=== PATIENT | female | born 1955 | race Caucasian/White ===

== ENCOUNTER → 2017-08-25 13:33 | Outpatient (CLI) | payer MEDICARE ==
[2010-02-27 13:04] VITALS: BMI 22.6
== END | disposition home or self-care (01) ==
LOC: D.MAMMO 07-23 10:45
DX: Z12.31 Encounter for screening mammogram for malignant neoplasm of breast (principal)

== ENCOUNTER → 2017-09-30 19:21 | Outpatient (CLI) | payer MEDICARE ==
[2010-02-27 13:04] VITALS: BMI 22.6
== END | disposition home or self-care (01) ==
LOC: D.MAMMO 11:30
DX: R92.8 Other abnormal and inconclusive findings on diagnostic imaging of breast (principal); N63.21 Unspecified lump in the left breast, upper outer quadrant

== ENCOUNTER → 2018-04-06 22:46 | Outpatient (CLI) | payer MEDICARE ==
[2010-02-27 13:04] VITALS: BMI 22.6
== END | disposition home or self-care (01) ==
LOC: D.MAMMO 09:00
DX: R92.8 Other abnormal and inconclusive findings on diagnostic imaging of breast (principal)

== ENCOUNTER → 2018-10-08 16:48 | Outpatient (CLI) | payer MEDICARE ==
[2010-02-27 13:04] VITALS: BMI 22.6
== END | disposition home or self-care (01) ==
LOC: D.MAMMO 09:30
PROVIDERS: ATTEND Internal Medicine
DX: R92.8 Other abnormal and inconclusive findings on diagnostic imaging of breast (principal)

== ENCOUNTER → 2019-03-31 06:44 | Outpatient (CLI) | payer MEDICARE ==
[2010-02-27 13:04] VITALS: BMI 22.6
== END | disposition home or self-care (01) ==
LOC: D.US 06:44
PROVIDERS: ATTEND Internal Medicine
DX: R10.9 Unspecified abdominal pain (principal)

== ENCOUNTER 2019-04-06 10:16 | Outpatient (CLI) | payer MEDICARE ==
[2010-02-27 13:04] VITALS: BMI 22.6
== END 2019-04-06 23:59 | disposition home or self-care (01) ==
LOC: D.MAMMO 10:16
PROVIDERS: ATTEND Internal Medicine
DX: R92.8 Other abnormal and inconclusive findings on diagnostic imaging of breast (principal)

== ENCOUNTER → 2020-12-13 08:22 | Outpatient (CLI) | payer MEDICARE ==
[2010-02-27 13:04] VITALS: BMI 22.6
== END | disposition home or self-care (01) ==
LOC: D.CT 08:22
PROVIDERS: ATTEND Internal Medicine
DX: R93.89 Abnormal findings on diagnostic imaging of other specified body structures (principal); R92.8 Other abnormal and inconclusive findings on diagnostic imaging of breast; I10 Essential (primary) hypertension; I42.8 Other cardiomyopathies; E78.5 Hyperlipidemia, unspecified; H91.93 Unspecified hearing loss, bilateral

== ENCOUNTER 2020-12-20 13:00 | Outpatient (CLI) | payer MEDICARE ==
[2010-02-27 13:04] VITALS: BMI 22.6
== END 2020-12-20 13:30 | disposition home or self-care (01) ==
LOC: D.MAMMO 13:00
PROVIDERS: ATTEND Internal Medicine
DX: R92.8 Other abnormal and inconclusive findings on diagnostic imaging of breast (principal); R93.89 Abnormal findings on diagnostic imaging of other specified body structures